=== PATIENT | female | born 1930 | race Caucasian/White ===

== ENCOUNTER → 2016-09-12 | Outpatient (CLI) | payer MEDICARE ==
[~2016-09-12] MED LIST: ACET-1651 PO; AMIO200T7 PO; ASPI-730 PO; BUME1TAB17 PO; CARV6.25 PO; CEPH500C2 PO; DOCU100C PO; FENO145T20 PO; GLUC1TAB38 PO; ISOS30TA6 PO; NIAC-9 PO; NITR0.4T28 SL; OLME1TAB12 PO; ROSU40TA8 PO; TRIA15CR3 TOP
[2016-09-12 07:50] LABS: ANION GAP 10 MEQ/L (5-15); BUN/CREATININE RATIO 32 RATIO (6-26); CALCIUM 9.4 MG/DL (8.4-10.2); CHLORIDE 101 MEQ/L (98-107); CO2 - CARBON DIOXIDE 33 MEQ/L (22-30); GLOMERULAR FILTRATION RATE 52; GLUCOSE 85 MG/DL (65-110); MAGNESIUM 1.9 MG/DL (1.6-2.3); POTASSIUM 3.9 MEQ/L (3.6-5); SODIUM 144 MEQ/L (134-144)
== END ==
LOC: LAB 07:16
PROVIDERS: ATTEND Internal Medicine Cardiovascular Disease
DX: I25.10 Atherosclerotic heart disease of native coronary artery without angina pectoris (principal); E83.42 Hypomagnesemia
CPT/HCPCS: 36415; 80048; 83735

== ENCOUNTER → 2016-09-23 | Outpatient (CLI) | payer MEDICARE ==
--- NOTE | 2016-10-01 09:39 | ECHOF ---
DATE OF PROCEDURE 09/23/2016 PROCEDURE PERFORMED Limited echo for EF only. The left ventricle appears mildly enlarged. Ejection fraction by M-mode is 40% and by Mcknight's biplane is 43%. [facility]
== END ==
LOC: IMA 09:38
PROVIDERS: ATTEND Internal Medicine Cardiovascular Disease
DX: I11.9 Hypertensive heart disease without heart failure (principal)
CPT/HCPCS: 93308